=== PATIENT | male | born 1935 | race Caucasian/White ===

== ENCOUNTER 2022-03-23 08:54 | Inpatient (IN) | payer OTHER, MEDICARE, MEDICAID ==
[~2022-03-23] VITALS: Ht 165.1 cm; Wt 59.4 kg
[2022-03-23 09:34] LABS: HEMOGLOBIN 8.9 gm/dl (14.0-17.5); RED BLOOD COUNT 3.38 M/UL (4.20-5.50); WHITE BLOOD COUNT 14.1 K/UL (4.5-11.0)
[2022-03-23 09:55] LABS: BUN/CREATININE RATIO 35 (0-10)
[2022-03-23] MEDS ORDERED: VITAMIN C250 MG PO (11:25)
[2022-03-23] MEDS ORDERED: AMLODIPINE BESYL5 MG PO (11:25)
[2022-03-23] MEDS ORDERED: ATORVASTATIN CA40 MG PO (11:26)
[2022-03-23] MEDS ORDERED: FERROUS SULFAT324 MG PO (11:26)
[2022-03-23] MEDS ORDERED: ASPIRIN EC81 MG PO (11:26)
[2022-03-23] MEDS ORDERED: CARVEDILOL25 MG PO (11:26)
[2022-03-23] MEDS ORDERED: B-121000 MCG PO (11:26)
[2022-03-23] MEDS ORDERED: IBUPROFEN600 MG PO (11:27)
[2022-03-23] MEDS ORDERED: FINASTERIDE5 MG PO (11:27)
[2022-03-23] MEDS ORDERED: LISINOPRIL40 MG PO (11:27)
[2022-03-23] MEDS ORDERED: FUROSEMIDE20 MG PO (11:27)
[2022-03-23] MEDS ORDERED: FLOMAX 0.4 MG0.4 MG PO (11:28)
[2022-03-23] MEDS ORDERED: TRAZODONE HCL150 MG PO (11:28)
[2022-03-24 05:21] LABS: HEMOGLOBIN 8.2 gm/dl (14.0-17.5); RED BLOOD COUNT 3.05 M/UL (4.20-5.50)
[2022-03-24 05:23] LABS: WHITE BLOOD COUNT 8.6 K/UL (4.5-11.0)
[2022-03-24 08:15] LABS: BUN/CREATININE RATIO 33 (0-10)
[2022-03-25 06:54] LABS: HEMOGLOBIN 8.1 gm/dl (14.0-17.5); RED BLOOD COUNT 3.09 M/UL (4.20-5.50); WHITE BLOOD COUNT 7.8 K/UL (4.5-11.0)
[2022-03-25 07:20] LABS: BUN/CREATININE RATIO 25 (0-10)
--- NOTE | 2022-03-25 13:48 | NUR ---
PATIENT NOTED TO DESAT TO 87%ON ROOM AIR WITH AMBULATION. CM AND MD AWARE. ORDERS FOR HOME O2 GIVEN
--- NOTE | 2022-03-25 13:59 | NUR ---
PATIENT NOTED TO HAVE AN O2 SAT OF 92% ON ROOM AIR AT REST PATIENT IS NOTED TO HAVE A SAT OF 97 % ON 2LNC
[2022-03-26 04:33] LABS: HEMOGLOBIN 7.9 gm/dl (14.0-17.5); RED BLOOD COUNT 2.98 M/UL (4.20-5.50); WHITE BLOOD COUNT 7.8 K/UL (4.5-11.0)
[2022-03-26 04:46] LABS: BUN/CREATININE RATIO 22 (0-10)
[2022-03-26] MEDS ORDERED: LEVOFLOXACIN750 MG PO (14:41)
[2022-03-26] MEDS ORDERED: SYMBICORT 160-1 INHA INH (14:41)
[2022-03-26] MEDS ORDERED: K-TAB ER10 MEQ PO ×3 (14:41→15:21)
[2022-03-26] MEDS ORDERED: HUMIBID LA TAB600 MG PO (14:41)
[2022-03-26] MEDS ORDERED: SPIRIVA HANDIH18 MCG INH (14:41)
[2022-03-26] MEDS ORDERED: PROTONIX40 MG PO (14:45)
--- NOTE | 2022-03-26 14:55 | NUR ---
CM STATES THAT PATIENT ALREADY HAS [facility] AND NO NEED TO CALL REPORT.
[2022-03-26] MEDS ORDERED: CLEOCIN HCL300 MG PO (14:58)
[2022-03-26] MEDS ORDERED: ACIDOPHILUS1 EACH PO (14:58)
== END 2022-03-26 16:53 | disposition home or self-care (01) | DRG 194 ==
LOC: ER1 08:54 → M/S 11:07 → CDU 11:07 → CCU 18:31 → M/S 03-24 17:45
PROVIDERS: Emergency Medicine; Internal Medicine; Physician Assistant; ADMIT Internal Medicine
PROC: B24BZZZ Ultrasonography of Heart with Aorta (ICD-10-PCS; principal; 2022-03-25)
DX: J18.9 Pneumonia, unspecified organism (principal); J44.0 Chronic obstructive pulmonary disease with (acute) lower respiratory infection; Z20.822 Contact with and (suspected) exposure to COVID-19; D64.9 Anemia, unspecified; D47.3 Essential (hemorrhagic) thrombocythemia; G47.00 Insomnia, unspecified; H91.90 Unspecified hearing loss, unspecified ear; I25.10 Atherosclerotic heart disease of native coronary artery without angina pectoris; D50.9 Iron deficiency anemia, unspecified; F17.200 Nicotine dependence, unspecified, uncomplicated; I11.0 Hypertensive heart disease with heart failure; I50.9 Heart failure, unspecified; E87.6 Hypokalemia; R79.89 Other specified abnormal findings of blood chemistry; Z79.899 Other long term (current) drug therapy; Z79.82 Long term (current) use of aspirin; Z79.52 Long term (current) use of systemic steroids; Z88.0 Allergy status to penicillin; Z90.49 Acquired absence of other specified parts of digestive tract; Z82.49 Family history of ischemic heart disease and other diseases of the circulatory system
CPT/HCPCS: ECHO; 0240U; 36415; 71045; 80048; 80053; 82550; 82553; 82728; 82962; 83540; 83550; 83735; 83880; 84484; 85025; 85027; 86140; 87070; 87205; 93005; 93306; 94640; 94664; 94760; 96374; 99285; J0456; J0696; J1650; J1756; J7030; J7050

== ENCOUNTER → 2022-05-12 | Outpatient (CLI) | payer OTHER, MEDICARE, MEDICAID ==
[~2022-05-12] MED LIST: ACIDOPHILUS1 EACH PO; AMLODIPINE BESYL5 MG PO; ASPIRIN EC81 MG PO; ATORVASTATIN CA40 MG PO; B-121000 MCG PO; CARVEDILOL25 MG PO; CLEOCIN HCL300 MG PO; FERROUS SULFAT324 MG PO; FINASTERIDE5 MG PO; FLOMAX 0.4 MG0.4 MG PO; FUROSEMIDE20 MG PO; HUMIBID LA TAB600 MG PO; IBUPROFEN600 MG PO; K-TAB ER10 MEQ PO; LEVOFLOXACIN750 MG PO; LISINOPRIL40 MG PO; PROTONIX40 MG PO; SPIRIVA HANDIH18 MCG INH; SYMBICORT 160-1 INHA INH; TRAZODONE HCL150 MG PO; VITAMIN C250 MG PO
== END ==
LOC: HEART 5 14:41
DX: J44.9 Chronic obstructive pulmonary disease, unspecified (principal)
CPT/HCPCS: 71046; 94010; 94729